=== PATIENT | female | born 1960 | race African-American/Black ===

== ENCOUNTER 2025-10-24 14:56 | Emergency (ER) | payer MEDICARE, OTHER ==
[~2025-10-24] VITALS: Ht 165.1 cm; Wt 91.0 kg
[2025-10-24 14:59] VITALS: BP 144/89; PULSE 101; RESP 18; TEMP 98; O2SAT 96
[2025-10-24] MEDS ORDERED: COROSUS EACH EAR (16:40)
[2025-10-24] MEDS ORDERED: BACDST PO (16:40)
[2025-10-24] MEDS ORDERED: IBUP-1456 PO (16:40)
--- NOTE | 2025-10-24 16:45 | ED.PDOC ---
Eye-HPI HPI Comments A 64 YEAR OLD FEMALE PRESENTS TO THE ED WITH COMPLAINT OF EARACHE. PT HAS BEEN HAVING R EARACHE WITH PAIN RADIAITNG TO THE R NASAL CAVITY FOR THE PAST 1X WEEK. PT STATES SOMETHING BIT HER AND FEELS LIKE IT CRAWLED INTO HER EAR. PATIENT DENIES FEVER, CHILLS, SHORTNESS OF BREATH, CHEST PAIN, ABDOMINAL PAIN, NAUSEA, VOMITING, HEADACHE, OR OTHER COMPLAINTS. NO OTHER SYMPTOMS OR MODIFYING FACTORS AT THIS TIME. PATIENT IS ALERT, ORIENTED X 4, AND HAS STEADY GAIT. Chief Complaint: Earache Time Seen by MD: 16:41 Reviewed Notes: Nurses Notes, Medications, Allergies Allergies: Coded Allergies: Penicillins (Verified Allergy, Unknown, 10/24/25) Home Meds Active Scripts [id number] (Otic) (Cortisporin Otic Susp) [address], 4 DROP EACH EAR TID, #10 ML Prov:SAMANTA PRECIADO 10/24/25 Sulfamethoxazole W/Trimethopri (Bactrim Ds Tablet) 1 Tab Tb, 1 TAB PO BID for 10 Days, #20 TAB Prov:SAMANTA PRECIADO 10/24/25 Ibuprofen (Ibuprofen) 800 Mg Tab, 1 TAB PO TID, #30 TAB Prov:SAMANTA PRECIADO 10/24/25 Information Source: Patient Mode of Arrival: Ambulatory Brought in by: SELF Timing: Days Duration: Since onset, Days Prehospital treatment: None Quality: Pain, Red Lids: Normal Conjunctiva: Normal Cornea: Normal Pupils: Normal EOM: Normal Fundus: Normal Slit lamp exam: Normal Anterior chamber: Normal Mouth: Normal ENT Ear Exam: Red, Bulging, Dull Nose: Normal Sinuses: Normal Oropharynx: Normal Onset: Spontaneous Last Tetanus: UTD Associated signs and symptoms: Ear Pain Past Medical History PAST MEDICAL HISTORY: Denies Surgical History: Denies all surgeries SILO TENDER History: Denies all SILO TENDER Hx Family History Family History: Reviewed,noncontributory to illness Social History Smoker: Non-Smoker Alcohol: Denies ETOH Use Drugs: Denies Drug Use Lives In: Home Constitutional: denies: chills, diaphoresis, fatigue, fever, malaise, sweats, weakness, others EENTM: reports: ear pain, ear ringing; denies: blurred vision, double vision, ear bleeding, ear discharge, ear drainage, eye pain, eye redness, hearing loss, mouth pain, mouth swelling, nasal discharge, nose bleeding, nose congestion, nose pain, photophobia, tearing, throat pain, throat swelling, voice changes, others Respiratory: denies: cough, hemoptysis, orthopnea, SOB at rest, shortness of breath, SOB with excertion, stridor, wheezing, others Cardiovascular: denies: chest pain, dizzy spells, diaphoresis, Dyspnea on exertion, edema, irregular heart beat, left arm pain, lightheadedness, palpitations, PND, syncope, others Gastrointestinal: denies: abdomen distended, abdominal pain, blood streaked bowels, constipated, diarrhea, dysphagia, difficulty swallowing, hematemesis, melena, nausea, poor appetite, poor fluid intake, rectal bleeding, rectal pain, vomiting, others Genitourinary: denies: abnormal vagina bleeding, burning, dyspareunia, dysuria, flank pain, frequency, hematuria, incontinence, pain, , vagina discharge, urgency, others Neurological: denies: dizziness, fainting, headache, left sided numbness, left sided weakness, numbness, paresthesia, pre-existing deficit, right sided numbness, right sided weakness, seizure, speech problems, tingling, tremors, weakness, others Musculoskeletal: denies: back pain, gout, joint pain, joint swelling, muscle pain, muscle stiffness, neck pain, others Integumetry: denies: bruises, change in color, change in hair/nails, dryness, laceration, lesions, lumps, rash, wounds, others Allergic/Immunocompromised: denies: Difficulty Healing, Frequent Infections, Hives, Itching, others Hematologic/Lymphatic: denies: anemia, blood clots, easy bleeding, easy bruising, swollen glands, others Endocrine: denies: excessive hunger, excessive sweating, excessive thirst, excessive urination, flushing, intolerance to cold, intolerance to heat, unexplained weight gain, unexplained weight loss, others Psychiatric: denies: anxiety, bipolar disorder, depression, hopeless, panic disorder, schizophrenia, sleepless, suicidal, others All Other Systems: Reviewed and Negative Physical Exam General Appearance: No Apparent Distress, Obese HEENT: PERRL/EOMI, Pharynx Normal, TM Abnormal (R) (ERYTHEMA AND DULL WITH EFFUSION OF RIGHT TM, NO BLEEDING AND BLOOD CLOTS. ) Neck: Full Range of Motion, Non-Tender, Normal, Normal Inspection Respiratory: Chest Non-Tender, Lungs Clear, No Accessory Muscle Use, No Respiratory Distress, Normal Breath Sounds Cardiovascular: No Edema, No JVD, No Murmur, No Gallop, Normal Peripheral Pulses, Regular Rate/Rhythm Breast Exam: Deferred Gastrointestinal: No Organomegaly, Non Tender, No Pulsatile Mass, Normal Bowel Sounds, Soft Genitalia: Deferred Pelvic: Deferred Rectal: Deferred Extremities: No calf tenderness, Normal capillary refill, Normal inspection, Normal range of motion, Non-tender, No pedal edema Musculoskeletal : Apperance: Normal Neurologic: Alert, gallery manager II-XII nml as Tested, No Motor Deficits, Normal Affect, Normal Mood, No Sensory Deficits Cerebellar Function: Normal Reflexes: Normal Skin: Dry, Normal Color, Warm Peripheral Pulses: 2+ carotid (R), 2+ carotid (L) Lymphatic: No Adenopathy Was a procedure done? Was a procedure done?: No EENT DIFF Eye: Other Ear: Cerumen Impaction, Foreign Body, Otitis Externa, Otitis Media X-Ray, Labs, Meds, VS Vital Signs Date Time Temp Pulse Resp B/P (MAP) Pulse Ox O2 Delivery O2 Flow Rate FiO2 10/24/25 14:59 98.0 101 18 144/89 96 98.0 X-Ray, Labs, Meds, VS Comment COURSE: EXTERNAL MEDICAL RECORDS REVIEWED: [NONE] INDEPENDENT HISTORIANS: [NONE] SOCIAL DETERMINANTS OF HEALTH: [NONE] LABS ORDERED: NONE REVIEWED AND INTERPRETED RESULTS: NONE IMAGING ORDERED: NONE TREATMENTS ORDERED: NONE PROCEDURES PERFORMED: NONE CRITICAL CARE TIME: NONE I HAVE DISCUSSED THE PATIENT WITH THE ATTENDING PHYSICIAN AND HE AGREES WITH THE PATIENT'S PLAN OF CARE AND DISPOSITION. BASED ON HISTORY OF PRESENT ILLNESS, AND PHYSICAL EXAM, PATIENT WILL BE DISCHARGED HOME. DISCUSSED PLAN FOR DISCHARGE HOME WITH RX [SEPTRA DS AND MOTRIN ]. MEDICATION WARNINGS GIVEN. SHARED DECISION MAKING: DISCUSSED WITH PATIENT THAT THEIR WORKUP WAS NORMAL. PATIENT INSTRUCTED TO FOLLOW UP WITH PRIMARY CARE PROVIDER IN 1-2 DAYS FOR RE- EVALUATION OF SYMPTOMS. PATIENT VERBALIZES UNDERSTANDING TO RETURN TO ED FOR NEW OR WORSENING SYMPTOMS OR IF FOLLOW UP WITH PCP CANNOT BE OBTAINED. PATIENT FEELS COMFORTABLE GOING HOME AT THIS TIME. ALL QUESTIONS ADDRESSED AT TIME OF DISCHARGE. Time of 1ST Reevaluation: 17:10 Reevaluation 1ST: Improved Patient Education/Counseling: Diagnosis, Treatment, Need For Follow Up Family Education/Counseling: Diagnosis, Treatment, Need For Follow Up Medical Screening: No EMC Exist At This Time SEPSIS Sepsis Screen Date sepsis recognized/suspect: Oct 24, 2025 Time Sepsis recognized/suspect: 1500 Recent Procedure: No On Antibiotic Therapy: No Respiratory Rate >20: No Heart Rate >90: Yes Temp<36 C (96.8 F) or >38.3 C: No SBP <90 or MAP <65 mmHG: No New Acute Mental Status Change: No Is the patient on CPAP, BIPAP,: No Vital Signs Date Time Temp Pulse Resp B/P (MAP) Pulse Ox O2 Delivery O2 Flow Rate FiO2 10/24/25 14:59 98.0 101 18 144/89 96 98.0 Departure 1 Departure Time of Disposition: 17:19 Impression: Primary Impression: Acute otitis media with effusion of right ear Disposition: HOME / SELF CARE / HOMELESS Condition: Stable Additional Instructions: INSTRUCTIONS: FOLLOW-UP WITH PCP IN 1 TO 2 DAYS. TAKE MEDICATIONS PRESCRIBED. RETURN TO ED FOR ANY NEW OR WORSENING SYMPTOMS. e-Prescriptions [id number]-[id number]-Xt (Otic) (Cortisporin Otic Susp) [address] 4 DROP EACH EAR TID, #10 ML Prov: SAMANTA PRECIADO 10/24/25 Sulfamethoxazole W/Trimethopri (Bactrim Ds Tablet) 1 Tab Tb 1 TAB PO BID for 10 Days, #20 TAB Prov: SAMANTA PRECIADO 10/24/25 Ibuprofen (Ibuprofen) 800 Mg Tab 1 TAB PO TID, #30 TAB Prov: SAMANTA PRECIADO 10/24/25 Discharged With: Self Critical Care Note Critical Care Time?: No Stability Stability form required: No Heart Score Heart Score: Heart Score Response (Comments) Value History N/A 0 EKG N/A 0 Age N/A 0 Risk Factors N/A 0 Troponin N/A 0 Total 0 I personally scribed for SAMANTA PRECIADO ([email or web address]) on 10/24/25 at 16:45. Electronically submitted by Katerin Jimenez ([email or web address]). SAMANTA PRECIADO Oct 24, 2025 16:45
== END 2025-10-24 16:48 | disposition home or self-care (01) ==
LOC: ER 14:56
DX: H65.191 Other acute nonsuppurative otitis media, right ear (principal); Z88.0 Allergy status to penicillin; Z79.899 Other long term (current) drug therapy